=== PATIENT | male | born 1950 | race Caucasian/White ===

== ENCOUNTER 2017-05-28 09:22 | Inpatient (IN) | payer OTHER ==
[~2017-05-28] VITALS: Ht 180.3 cm; Wt 68.3 kg
--- NOTE | 2017-05-28 09:49 | ED CARDIAC/CP/PALPITATIONS ---
See Addendum History of Present Illness General Chief Complaint: Chest Pain Stated Complaint: BIBA CP Source: patient Exam Limitations: no limitations Vital Signs & Intake/Output Vital Signs & Intake/Output Vital Signs Date Time Temp Pulse Resp B/P B/P Pulse O2 O2 Flow FiO2 Mean Ox Delivery Rate 05/28 1220 97.0 84 18 110/84 99 Nasal 2.0L Cannula 05/28 1007 76 18 116/82 99 Nasal 2.0L Cannula 05/28 1000 99 Nasal 2.0L Cannula 05/28 0940 158 110/74 05/28 0940 158 20 110/74 99 Nasal 2.0L Cannula 05/28 0932 158 96/62 05/28 0930 98.1 153 18 98/57 97 Nasal 2.0L Cannula Allergies Coded Allergies: acetaminophen (From PERCOCET) (Intermediate, URTICARIA 05/28/17) oxycodone (From PERCOCET) (Intermediate, URTICARIA 05/28/17) Triage Nurses Notes Reviewed? yes Onset: Abrupt Duration: day(s): (1), better, continues in ED Timing: single episode today Quality/Severity: moderate, dull Location: central Radiation: jaw, neck Activities at Onset: none Prior Chest Pain/Card Workup: no prior chest pain, no prior cardiac workup Nitro Today/Relief: 0.4 mg x 1, provided by EMS, complete relief Aspirin Today: 325 mg x 1, provided by EMS HPI: 66-year-old male past medical history of alcohol abuse brought in by ambulance for evaluation of chest pain palpitations. Patient reports that last night he noticed racing heart and some central chest pain. The pain radiates up into his neck and jaw. He also feels that his heart is racing. He reports associated shortness of breath no hemoptysis lower extremity edema nausea vomiting or diarrhea. He denies any drug use. He does note that he drinks alcohol daily last drink last night. Patient received a nitroglycerin ANS ASA from EMS with complete resolution of the pain. On evaluation to the ER he just reports rapid heart rate. No dizziness or lightheadedness. No recent surgery recent trauma lower extremity edema. He does report that he had a chest CT that showed coronary artery calcifications and a thoracic aneurysm. (Angel MENSAH,Des) Reconcile Medications Aspirin (Aspirin*) 81 MG TAB.CHEW 1 TAB PO DAILY HEART (Reported) Rosuvastatin Calcium (Crestor) 20 MG TABLET 1 TAB PO DAILY HLP (Reported) (Gold Haji DO) Past History Medical History Any Pertinent Medical History? see below for history Surgical History Surgical History: non-contributory Family History Hx Contributory? No (Des Rae) Review of Systems Review of Systems Constitutional: Reports: no symptoms. EENTM: Reports: no symptoms. Respiratory: Reports: see HPI, short of breath. Cardiovascular: Reports: see HPI, chest pain, palpitations. GI: Reports: no symptoms. Genitourinary: Reports: no symptoms. Musculoskeletal: Reports: no symptoms. Skin: Reports: no symptoms. Neurological/Psychological: Reports: no symptoms. Hematologic/Endocrine: Reports: no symptoms. Immunologic/Allergic: Reports: no symptoms. All Other Systems: Reviewed and Negative (Des Rae) Physical Exam Physical Exam General Appearance: well developed/nourished, no apparent distress, alert, awake Head: atraumatic, normal appearance Eyes: Bilateral: normal appearance, PERRL, EOMI. Ears, Nose, Throat: normal pharynx, normal ENT inspection, hearing grossly normal Neck: normal inspection, supple, full range of motion, JVD Respiratory: normal breath sounds, chest non-tender, no respiratory distress, lungs clear Cardiovascular: normal peripheral pulses, tachycardia Peripheral Pulses: 2+ radial (R), 2+ radial (L) Gastrointestinal: soft, non-tender Rectal: normal exam, normal rectal tone, heme negative stool Back: normal inspection, normal range of motion, no vertebral tenderness Extremities: normal inspection, normal range of motion, no edema Neurologic/Psych: no motor/sensory deficits, awake, alert, oriented x 3, normal gait Skin: intact, normal color, warm/dry Lymphatic: no anterior cervical t[place] Core Measures ACS in differential dx? Yes CVA/TIA Diagnosis No Sepsis Present: No Sepsis Focused Exam Completed? No (Des Rae) Progress Differential Diagnosis: AMI, aortic dissection, atrial fibrillation, CHF/pulm edema, costochondritis, musculoskeletal pain, pancreatitis, pericarditis, pneumonia, pneumothorax, PSVT, pulmonary embolism, sepsis, unstable angina, V- fib/V-Tach, WPW syndrome Plan of Care: Orders Procedure Date/time Status EKG 05/29 2200 Active CBC WITHOUT DIFFERENTIAL 05/29 0600 Active BASIC ELECTROLYTES PLUS BUN&CR 05/29 0600 Active Heart Healthy Diet 05/28 L Complete Heart Healthy Diet 05/28 D Active TROPONIN LEVEL 05/28 2200 Active TROPONIN LEVEL 05/28 1600 Active EKG 05/28 1600 Active Code Status 05/28 1248 Active ECHOCARDIOGRAM 05/28 1220 Active Pathway - chart 05/28 1207 Active ECHOCARDIOGRAM 05/28 1207 Active URINE DRUGS OF ABUSE 05/28 1200 Active Patient Data 05/28 1125 Active ED Holding Orders 05/28 1101 Active Admit to inpatient 05/28 1101 Active Vital Signs 05/28 1101 Active Code Status 05/28 1101 Complete Intake & Output 05/28 0959 Active Add-on Test (ER Only) 05/28 0944 Active EKG 05/28 0944 Active Add-on Test (ER Only) 05/28 0940 Active Telemetry/Supervisor Liquefaction 05/28 0925 Active TSH REFLEX 05/28 0924 Complete TROPONIN LEVEL 05/28 0924 Complete PARTIAL THROMBOPLASTIN TIME 05/28 0924 Complete PROTHROMBIN TIME 05/28 0924 Complete MAGNESIUM 05/28 0924 Complete LIPASE 05/28 0924 Complete ETHANOL 05/28 0924 Complete D-DIMER 05/28 0924 Complete COMPREHENSIVE METABOLIC PANEL 05/28 0924 Complete CBC WITHOUT DIFFERENTIAL 05/28 0924 Complete B-TYPE NATRIURETIC PEP (BNP) 05/28 0924 Complete EKG 05/28 0923 Active Pathway - chart 05/28 UNK Active House Staff 05/28 UNK Active VTE Mechanical Prophylaxis 05/28 UNK Active Vital Signs 05/28 UNK Active Telemetry/Supervisor Liquefaction 05/28 UNK Active Intake & Output 05/28 UNK Active CIWA 05/28 UNK Active Current Medications Sig/Mars Start time Last Medication Dose Stop Time Status Admin Aspirin 81 MG DAILY 05/29 0900 UNVr (Aspirin) Atorvastatin Calcium 80 MG 1700 05/28 1700 UNVr (Lipitor) Heparin Sodium 4,000 UNIT ONCE ONE 05/28 1300 CAN (Porcine) 05/28 1301 (Heparin Bolus) Heparin Sodium 25,000 UNIT Q24H 05/28 1300 UNVr (Porcine) (Heparin) Sodium Chloride 500 ML Heparin Sodium 5,000 UNIT ONCE ONE 05/28 1300 UNVr (Porcine) 05/28 1301 (Heparin Bolus) Lorazepam 0 Q1P PRN 05/28 1300 UNVr (Ativan) Aspirin 325 MG ONCE ONE 05/28 0945 CAN (Aspirin) 05/28 0946 Laboratory Tests 05/28/17 1000: Anion Gap 6, Estimated GFR > 60, BUN/Creatinine Ratio 28.3 H, Glucose 102 H, Calcium 8.7, Magnesium 1.8, Total Bilirubin 1.3, AST 25, ALT 38, Alkaline Phosphatase 55, Troponin I < 0.01, Cop-K-Bxtaiwoteci Pept 1300 H, Total Protein 6.7, Albumin 3.9, Globulin 2.8, Albumin/Globulin Ratio 1.4, Lipase 33, TSH &T3 & Free T4 Intrp 0.923, PT 11.3, INR 1.04, APTT 28, D-Dimer High Sensitivty 302 H, CBC w Diff NO MAN DIFF REQ, RBC 4.49 L, MCV 98.9 H, MCH 33.7 H, MCHC 34.1, RDW 14.3, MPV 7.7, Gran % 82.0 H, Lymphocytes % 9.6 L, Monocytes % 7.7, Eosinophils % 0.5, Basophils % 0.2, Absolute Granulocytes 9.9 H, Absolute Lymphocytes 1.2, Absolute Monocytes 0.9 H, Absolute Eosinophils 0.1, Absolute Basophils 0, Serum Alcohol < 10.0 Patient seen and evaluated. On arrival to the emergency department hE is chest pain-free and had a narrow complex SVtachycardia rate of 150s. Blood pressure was 90s over 50s. Patient was given a dose of 6 mg of adenosine that slowed his heart rate down to reveal atrial flutter. Blood pressure to 110s over 70s. He was then given 5 mg of IV Lopressor with good improvement of his heart rate. He is now in a flutter with a rate in the 70s. Blood pressure normalized she reports improvement in his pain. We'll check basic labs, telemetry monitoring, chest x-ray. A CT of the chest and pelvis will be ordered to evaluate for worsening thoracic aneurysm/dissection. Patient was seen by cardiology in the emergency department and they recommended admission to telemetry for further evaluation and treatment. Patient will be heparinized after CTA is back. Case discussed with Dr. Haji. Dr. Haji was present during evaluation of this patient. Diagnostic Imaging: Viewed by Me: Radiology Read, CT Scan. Discussed w/RAD: Radiology Read, CT Scan. Initial ED EKG: SVT RATE 150S, REPEAT EKG AFTER ADENOSINE SHOWS ATRIAL FLUTTER WITH HYPERACUTE T WAVES (Des Rae) Departure Departure Disposition: STILL A PATIENT Condition: Stable Clinical Impression Primary Impression: Atrial flutter Qualifiers: Atrial flutter type: unspecified Qualified Code: I48.92 - Unspecified atrial flutter Referrals: Ryan Ontiveros MD (PCP/Family) Departure Forms: Customer Survey General Discharge Information (Des Rae) Admission Note Spoke With: Louann FOX,Mary Goodson Documentation of Exam: Documentation of any treatments & extenuating circumstances including Concerns Regarding Discharge (functional status, medication knowledge or non-compliance, living conditions, etc.) that warrant an admission rather than observation: [ Patient needs admission for CTA, IV heparinization, cardiology consultation, inpatient echocardiogram PA/MEMORIAL COUNSELOR Co-Sign Statement Statement: ED Attending supervision documentation- [x] I saw and evaluated the patient. I have also reviewed all the pertinent lab results and diagnostic results. I agree with the findings and the plan of care as documented in the PA's/MEMORIAL COUNSELOR's documentation. [] I have reviewed the ED Record and agree with the PA's/MEMORIAL COUNSELOR's documentation. [] Additions or exceptions (if any) to the PAs/MEMORIAL COUNSELOR's note and plan are summarized below: [] 05/28/17 I've seen and personally examined the patient. He is a 66-year-old male who presents emergency Department with palpitations and neck pain. EKG showed SVT. He was given 6 mg of adenosine and he slowed down into the 120s. A flutter was noted and he was treated with 5 mg of IV Lopressor. He is currently pain-free. He is being admitted to the hospital for further care. (Gold Haji DO) Critical Care Note Critical Care Note Critical Care Time: non-applicable (Des Rae)
[2017-05-28 10:10] LABS: ABSOLUTE BASOPHIL COUNT 0 /CUMM (0.0-0.2); ABSOLUTE EOSINOPHIL COUNT 0.1 /CUMM (0.0-0.7); ABSOLUTE GRANULOCYTE CT 9.9 /CUMM (1.4-6.5); ABSOLUTE LYMPH COUNT 1.2 /CUMM (1.2-3.4); ABSOLUTE MONOCYTE COUNT 0.9 /CUMM (0.10-0.60); BASOPHIL % 0.2 % (0.0-2.0); EOSINOPHIL % 0.5 % (0-5); HEMATOCRIT 44.4 % (42-52); MEAN CORPUSCULAR HGB 33.7 PG (27.0-31.0); MEAN CORPUSCULAR HGB CONC 34.1 G/DL (33.0-37.0); MEAN CORPUSCULAR VOLUME 98.9 FL (80.0-94.0); MEAN PLATELET VOLUME 7.7 FL (7.4-10.4); PLATELET COUNT 184 /CUMM (130-400); RBC DISTRIBUTION WIDTH 14.3 % (11.5-14.5); RED BLOOD CELL CT 4.49 /CUMM (4.70-6.10); WHITE BLOOD CELL COUNT 12.1 /CUMM (4.8-10.8)
[2017-05-28 10:29] LABS: PT 11.3 SEC (9.4-12.5); PTT 28 SEC (25-37)
--- NOTE | 2017-05-28 10:50 | RADIOLOGY REPORT ---
EXAMINATION: XR PORTABLE CHEST CLINICAL INFORMATION: Chest pain shortness of breath COMPARISON: Chest CT May 2017. Chest x-ray October 2015. TECHNIQUE: Portable frontal view of the chest was obtained. FINDINGS: No significant abnormality is noted involving the heart, lungs, mediastinum, bony thorax or soft tissues. IMPRESSION: Unremarkable examination. The previously noted small nodules noted on CT are not conspicuous on x-ray.
--- NOTE | 2017-05-28 11:50 | History & Physical ---
Roberta Stuart 05/28/17 1148: General Information and HPI MD Statement: I have seen and personally examined GABE DE JESUS and documented this H&P. The patient is a 66 year old M who presented with a patient stated chief complaint of [chest pain]. Source of Information: patient Exam Limitations: no limitations History of Present Illness: 66-year-old male with a past medical history of alcohol abuse, hyperlipidemia, COPD not on home oxygen presented to the ER with chief complaints of chest pain and palpitations. According to the patient he was in his usual state of health up until 2 AM this morning when he woke up from his with complaints of pain in his neck area that was nonradiating, but she can grade however states that it was not excruciating enough as a 10 out of 10. He denies any dizziness, lightheadedness, chest discomfort however states that he had a difficult time breathing and so he sat up and remain in a chair thereafter. He denies any racing or fluttering of the heart or palpitations. He states that the neck discomfort was severe enough for him to decide to come to the walk-in clinic for further evaluation. He was subsequently sent to the ER. Of note patient follows up with Dr. Gupta as an outpatient. He states that about a couple of years ago he had an episode of syncope and had his stress test that reportedly is unremarkable. Patient does endorse smoking 1 pack of cigarettes a day and has been doing that for almost 30 years now. He also drinks bourbon 4-6 ounces on a daily basis. His last drink was yesterday at 9 PM. He denies any other recreational drug use. He states he did not overdrink last evening. Of note he does endorse having cough and bringing up white phlegm however he has had that chronically in the recent upper respiratory tract infection. Allergies/Medications Allergies: Coded Allergies: acetaminophen (From PERCOCET) (Intermediate, URTICARIA 05/28/17) oxycodone (From PERCOCET) (Intermediate, URTICARIA 05/28/17) Home Med list Aspirin (Aspirin*) 81 MG TAB.CHEW 1 TAB PO DAILY HEART (Reported) Rosuvastatin Calcium (Crestor) 20 MG TABLET 1 TAB PO DAILY HLP (Reported) Compliance With Home Meds: GOOD Past History Travel History Traveled to [place] past 21 day No Medical History Cardiovascular: hyperlipidemia Respiratory: COPD, emphysema Surgical History Surgical History: non-contributory, BACK SURGERIES Past Family/Social History Family History Relations & Conditions if any MOTHER FH: colon cancer FATHER FH: malignant neoplasm of bone Psychosocial History Where do you live? Home Who Do You Live With? spouse Smoking Status: Current Everyday Smoker ETOH Use: alcoholic Illicit Drug Use: denies illicit drug use Review of Systems Review of Systems Constitutional: Denies: chills, fever, weakness. EENTM: Denies: visual changes. Cardiovascular: Denies: chest pain, edema, orthopena, palpitations, peripheral edema, syncope. Respiratory: Reports: cough, short of breath, sputum production. Denies: hemoptysis, orthopnea, wheezing. GI: Denies: abdominal pain, constipation, diarrhea, nausea, vomiting. Genitourinary: Reports: no symptoms. Neurological/Psychological: Denies: headache, numbness, tingling, tremors, unable to move lower ext, unable to move upper ext, weakness. Exam & Diagnostic Data Last 24 Hrs of Vital Signs/I&O Vital Signs Date Time Temp Pulse Resp B/P B/P Pulse O2 O2 Flow FiO2 Mean Ox Delivery Rate 05/28 1007 76 18 116/82 99 Nasal 2.0L Cannula 05/28 1000 99 Nasal 2.0L Cannula 05/28 0940 158 110/74 05/28 0940 158 20 110/74 99 Nasal 2.0L Cannula 05/28 0932 158 96/62 05/28 0930 98.1 153 18 98/57 97 Nasal 2.0L Cannula Physical Exam General Appearance Alert, Oriented X3, Cooperative, No Acute Distress Skin Temp/Moisture Exam: Warm/Dry HEENT Atraumatic, PERRLA, EOMI, dry mucous membranes Neck Supple, No JVD, No thryomegaly, No LAD Cardiovascular Normal S1, Normal S2, No Murmurs, tachycardic; irregular Lungs Clear to Auscultation, Normal Air Movement Abdomen Normal Bowel Sounds, Soft, No Tenderness Neurological Normal Speech, Strength at 5/5 X4 Ext, Normal Tone, Sensation Intact, Cranial Nerves 3-12 NL, Reflexes 2+ Extremities No Edema, No Tenderness/Swelling Vascular Normal Pulses, Pulses Symmetrical Last 24 Hrs of Labs/Chris: Laboratory Tests 05/28/17 1000: Anion Gap 6, Estimated GFR > 60, BUN/Creatinine Ratio 28.3 H, Glucose 102 H, Calcium 8.7, Magnesium 1.8, Total Bilirubin 1.3, AST 25, ALT 38, Alkaline Phosphatase 55, Troponin I < 0.01, Wva-P-Gadoynbrzle Pept 1300 H, Total Protein 6.7, Albumin 3.9, Globulin 2.8, Albumin/Globulin Ratio 1.4, Lipase 33, TSH &T3 & Free T4 Intrp 0.923, PT 11.3, INR 1.04, APTT 28, D-Dimer High Sensitivty 302 H, CBC w Diff NO MAN DIFF REQ, RBC 4.49 L, MCV 98.9 H, MCH 33.7 H, MCHC 34.1, RDW 14.3, MPV 7.7, Gran % 82.0 H, Lymphocytes % 9.6 L, Monocytes % 7.7, Eosinophils % 0.5, Basophils % 0.2, Absolute Granulocytes 9.9 H, Absolute Lymphocytes 1.2, Absolute Monocytes 0.9 H, Absolute Eosinophils 0.1, Absolute Basophils 0, Serum Alcohol < 10.0 Diagnostic Data EKG Results Atrial flutter; HR: 153; LVH; tall peak CXR Results SERVICE DATE: 05/28/17 EXAM TYPE: RAD - XRY-PORTABLE CHEST XRAY IMPRESSION: Unremarkable examination. The previously noted small nodules noted on CT are not conspicuous on x-ray. Other Results SERVICE DATE: 05/28/17 EXAM TYPE: CAT - CT ABD & PELVIS ANGIOGRAM; CTA CHEST-AORTIC DISSECTION FINDINGS: VASCULAR: ASCENDING AORTA: Top normal in size measuring 3.8 x 3.7 cm at the main pulmonary artery. There is no evidence of intramural hematoma or dissection. LAD coronary artery calcium. AORTIC ARCH: Normal caliber. Three-vessel aortic arch.. Vessels are patent. No evidence of intramural hematoma or dissection. DESCENDING AORTA: Normal caliber. No evidence of intramural hematoma or dissection. ABDOMINAL AORTA: Normal caliber. Mild plaque in the infrarenal segment. No evidence of intramural hematoma or dissection. CELIOMESENTERIC ARTERIES: Mild disease at the celiac artery origin. The SMA is widely patent. The BILLIE is widely patent. RENAL ARTERIES: Mild disease at the right renal artery origin. Mild disease at the left renal artery origin. The renal arteries are patent. RIGHT ILIOFEMORAL ARTERIES: Moderate atherosclerotic plaque. Severe stenosis at the external iliac artery origin. Mild common femoral level disease. LEFT ILIOFEMORAL ARTERIES: Moderate atherosclerotic plaque. No hemodynamically significant stenosis. Mild common femoral level disease. NONVASCULAR: LUNGS: Severe emphysema. There are numerous solid nodules bilaterally ranging in size from 2-9 mm without change. No definite new lesion. Follow-up as appropriate based on the prior lung cancer screening recommendations. MEDIASTINUM: No mediastinal adenopathy. PLEURA: There is no pleural effusion. No pleural mass or thickening. LIVER, GALLBLADDER, AND BILIARY TREE: The liver is normal in size, shape, and attenuation. No focal hepatic lesion or biliary ductal dilatation is present. The gallbladder is unremarkable with no evidence of radiopaque gallstones, gallbladder wall thickening, or obvious pericholecystic inflammatory changes. PANCREAS: Unremarkable. SPLEEN: Unremarkable. ADRENAL GLANDS: Unremarkable. KIDNEYS AND URETERS: The kidneys are normal in size, shape, and attenuation. No hydronephrosis, hydroureter, or calculi seen. No perinephric stranding. BLADDER: Unremarkable. GASTROINTESTINAL TRACT: The small and large bowel are unremarkable. The appendix is unremarkable. ABDOMINAL WALL: No significant hernia is appreciated. LYMPH NODES: Normal. PELVIC VISCERA: The prostate and seminal vesicles are unremarkable. OSSEOUS STRUCTURES: Mild multilevel degenerative disc disease. No compression fracture. IMPRESSION: Negative for aortic dissection. Assessment/Plan Assessment: 66-year-old male with a past medical history of alcohol, HLP, COPD (not on home O2) was brought in by ambulance for evaluation of chest pain and palpitations. Vitals at the time of blood pressure 116/82, respiratory rate of 18, saturating 99% on 2 L of oxygen via nasal cannula. Labs pertinent for leukocytosis with a white blood count of 12,100, H&H of 15.1/ 44.4 and a platelet count of [id number]. Serum chemistries reveal a sodium 136, potassium 3.9, bicarb of 29, anion gap 12 6, BUN 17 and creatinine of 0.6. Serum glucose 102. Magnesium was 1.8. LFTs unremarkable with a total bili of 1.3, AST/ALT of 325/38, alk phos of 55 first of troponin negative at less than 0.01 BNP 1300. TSH/T3-T4 0.92 and serum lipase of 30. INR 1.04 with a d-dimer of 302. Tox screen revealed serum alcohol of less than 10. Chest x-ray was done which revealed an unremarkable examination. The previously noted small nodules noted on CT are not conspicuous on x-ray. CTA chest and abdomen pelvis r/o aortic dissection. EKG revealed atrial flutter with HR: 154; 2:1 blcok; LVH; tall T waves The ER patient received 6 mg IV 1 of adenosine, 5 mg IV 1 of Lopressor normal saline bolus. Assessment and Plan Admit patient to telemetry given SVT. # Atrial flutter - Most likely 2/2 COPD which prednisone, in the setting of having consumed alcohol vs ACS (unlikley) - New onset- of unknown duration - Patient is presently rate controlled with HR in the 70's after receiving 5mg of IV Lopressor and 6mg of adenosine in the ER earlier on. - Spoke with Dr. Camejo. Will satrt patient on a low dose B-Tonio - Metoprolol 12.5mg BID to maintain resting HR of <110 - His [id number] is 1, and HASBLED score of 1 (given he consumes more than 8 drinks of alcohol) - He is at low risk of bleeidng and would benefit form AC, especially if heneeds to be cardioverted in the future. - He was guaic negative as per ED physician. Will start Heparin for now. - Meanwhile will trend trop and EKG q6 hrs to r/o any ischemic event taht may have precipitated this. - Echo to r/o RWMA, and to dtermine if he has dilated atria suggestive of chronic afib/flutter - F/U cardio recs. #Alcohol dependence - Will place him on CIWA - Will also start him on Ativan per CIWA. #HLP - Continue on Atorvastatin 80mg and ASA 81mg daily. #Nicotine dependence - Counselled on smoking cessation - DVT Prophylaxis - On IV heparin - Diet - Heart Healthy - Code Status - Full Code As Ranked By This Provider Problem List: 1. Atrial flutter Qualifiers Atrial flutter type: unspecified Qualified Code: I48.92 - Unspecified atrial flutter Core Measures/Misc (10/29) Acute Coronary Syndrome ACS Diagnosis: No Congestive Heart Failure Congestive Heart Failure Diagnosis No Cerebrovascular Accident CVA/TIA Diagnosis: No VTE (View Protocol) VTE Risk Factors Age>40 No Mechanical VTE Prophylaxis d/t N/A MechProphylax Ordered No VTE Pharm Prophylaxis d/t NA PharmProphylax ordered Sepsis (View protocol) Sepsis Present: No Resident Review Statement Resident Statement: admitted by resident Jolene Obrien 05/28/17 1446: Attending MD Review Statement Attending Statement Attending MD Statement: examined this patient, discuss w/resident/PA/NUTRITION PARTNER, agreed w/resident/PA/NUTRITION PARTNER, discussed with family, reviewed EMR data (avail), discussed with nursing, discussed with case mgmt, reviewed images, amended to note Attending Assessment/Plan: 66 o/m with atypical chest pain and new onset atrial flutter. Obtain serial caridac enzymes r/o IA. Telemetry monitoring. Cardiology consult, ECHO as per cardiology. ASA, statin , anticaogulation as per cardiology. home meds.
--- NOTE | 2017-05-28 12:20 | Cons- Cardiology ---
General Information and HPI Consulting Request Date of Consult: 05/28/17 Requested By: Jolene Obrien MD Reason for Consult: atrial flutter Source of Information: patient, old records History of Present Illness: This is a 66-year-old male with a past medical history of coronary artery calcifications with no ischemia by stress test, COPD with active tobacco use, and alcohol dependence who presented to [facility] with a chief complaint of moderate intensity super clavicular discomfort which awoke him from sleep with some pain in his neck and also some mild dyspnea without associated nausea or diaphoresis. Denies headache, slurring of speech, subjective fever, or focal weakness. He reports approximately 3 "shots" of whiskey each evening which is chronic for him. prior to this episode he reports being in his usual state of health with no unusual symptoms. In the emergency room he was found to have tachycardia and was given adenosine and was subsequently noted to have atrial flutter with variable conduction. He reports no prior history of significant atrial arrhythmia. Denies significant palpitation. Allergies/Medications Allergies: Coded Allergies: oxycodone (From PERCOCET) (Intermediate, URTICARIA 05/28/17) Home Med List: Aspirin (Aspirin*) 81 MG TAB.CHEW 1 TAB PO DAILY HEART (Reported) Rosuvastatin Calcium (Crestor) 20 MG TABLET 1 TAB PO DAILY HLP (Reported) Current Medications: Current Medications Sig/Mars Start time Last Medication Dose Route Stop Time Status Admin Adenosine 6 MG ONCE ONE 05/28 0945 DC 05/28 IV 05/28 0946 0932 Adenosine 0 .STK-MED ONE 05/28 0943 DC IV Aspirin 325 MG ONCE ONE 05/28 0845 CAN PO 05/28 0946 Metoprolol Tartrate 0 .STK-MED ONE 05/28 0947 DC IV Metoprolol Tartrate 5 MG ONCE ONE 05/28 0945 DC 05/28 IV 05/28 0946 0940 Sodium Chloride 1,000 ML BOLUS ONE 05/28 0945 DC 05/28 IV 05/28 1044 0928 Review of Systems Review of Systems: Review of systems as per HPI. The remainder of a 10 point review of systems was reviewed and was otherwise negative. Past History Travel History Traveled to [place] past 21 day No Medical History Cardiovascular: hyperlipidemia Respiratory: COPD, emphysema Surgical History Surgical History: non-contributory Psychosocial History ETOH Use: alcoholic Exam & Diagnostic Data Vital Signs and I&O Vital Signs Date Time Temp Pulse Resp B/P B/P Pulse O2 O2 Flow FiO2 Mean Ox Delivery Rate 05/28 1007 76 18 116/82 99 Nasal 2.0L Cannula 05/28 1000 99 Nasal 2.0L Cannula 05/28 0940 158 110/74 05/28 0940 158 20 110/74 99 Nasal 2.0L Cannula 05/28 0932 158 96/62 05/28 0930 98.1 153 18 98/57 97 Nasal 2.0L Cannula Physical Exam: General: no apparent distress. Alert. Eyes: No obvious scleral icterus. HEENT: No jugular venous distention or abnormal jugular venous pulsations. Cardiovascular: Normal intensity S1/S2. Irregular Respiratory: No rales or rhonchi Abdomen: Soft, nontender with no guarding or rebound tenderness. Musculoskeletal: No clubbing or cyanosis noted Skin: Warm Neurologic: No gross focal deficits noted. Labs/Chris Results: Laboratory Tests 05/28 1000 Chemistry Sodium (137 - 145 mmol/L) 136 L Potassium (3.5 - 5.1 mmol/L) 3.9 Chloride (98 - 107 mmol/L) 100 Carbon Dioxide (22 - 30 mmol/L) 29 Anion Gap (5 - 16) 6 BUN (9 - 20 mg/dL) 17 Creatinine (0.7 - 1.2 mg/dL) 0.6 L Estimated GFR (>60 ml/min) > 60 BUN/Creatinine Ratio (7 - 25 %) 28.3 H Glucose (65 - 99 mg/dL) 102 H Calcium (8.4 - 10.2 mg/dL) 8.7 Magnesium (1.6 - 2.3 mg/dL) 1.8 Total Bilirubin (0.2 - 1.3 mg/dL) 1.3 AST (17 - 59 U/L) 25 ALT (21 - 72 U/L) 38 Alkaline Phosphatase (< 127 U/L) 55 Troponin I (<0.11 ng/ml) < 0.01 Fng-B-Surhbzxmnvs Pept (<125 pg/mL) 1300 H Total Protein (6.3 - 8.2 g/dL) 6.7 Albumin (3.5 - 5.0 g/dL) 3.9 Globulin (1.9 - 4.2 gm/dL) 2.8 Albumin/Globulin Ratio (1.1 - 2.2 %) 1.4 Lipase (23 - 300 U/L) 33 TSH &T3 &Free T4 Intrp (0.27 - 4.20 uIU/mL) 0.923 Coagulation PT (9.4 - 12.5 SEC) 11.3 INR (0.90 - 1.17) 1.04 APTT (25 - 37 SEC) 28 D-Dimer High Sensitivty (0 - 243 ng/ml) 302 H Hematology CBC w Diff NO MAN DIFF REQ WBC (4.8 - 10.8 /CUMM) 12.1 H RBC (4.70 - 6.10 /CUMM) 4.49 L Hgb (14.0 - 18.0 G/DL) 15.1 Hct (42 - 52 %) 44.4 MCV (80.0 - 94.0 FL) 98.9 H MCH (27.0 - 31.0 PG) 33.7 H MCHC (33.0 - 37.0 G/DL) 34.1 RDW (11.5 - 14.5 %) 14.3 Plt Count (130 - 400 /CUMM) 184 MPV (7.4 - 10.4 FL) 7.7 Gran % (42.2 - 75.2 %) 82.0 H Lymphocytes % (20.5 - 51.1 %) 9.6 L Monocytes % (1.7 - 9.3 %) 7.7 Eosinophils % (0 - 5 %) 0.5 Basophils % (0.0 - 2.0 %) 0.2 Absolute Granulocytes (1.4 - 6.5 /CUMM) 9.9 H Absolute Lymphocytes (1.2 - 3.4 /CUMM) 1.2 Absolute Monocytes (0.10 - 0.60 /CUMM) 0.9 H Absolute Eosinophils (0.0 - 0.7 /CUMM) 0.1 Absolute Basophils (0.0 - 0.2 /CUMM) 0 Toxicology Serum Alcohol (<10 MG/DL) < 10.0 Diagnostic Data EKG Results Tracing was personally reviewed and shows atrial flutter with variable conduction and prominent T waves CXR Results No evidence of CHF Other Results Chest Ct: Negative for aortic dissection. Assessment/Plan Assessment/Plan 1. New onset symptomatic atrial flutter 2. COPD 3. Active cigarette use 4. EtOH dependence 5. History of coronary artery calcifications The patient presents in new onset atrial flutter; he was initially tachycardic but heart rate is now improved as he now has variable conduction. His initial symptoms also improved. We have initiated him on heparin intravenous drip and also low-dose metoprolol as he was not bronchospastic on exam today. Likely plan to transition to oral anticoagulant if tolerating the heparin drip and if able to tolerate oral anticoagulation will likely be a candidate for either cardioversion or direct flutter ablation in the future. Agree with obtaining a transthoracic echocardiogram. Continue on daily statin therapy. Discussed the importance of smoking cessation and decreased ETOH use. Case was discussed with the ER attending and admitting resident. Mitch Camejo MD [facility] Consult Acknowledgment - Thank you for your consult request.
--- NOTE | 2017-05-28 12:28 | CT SCAN REPORT ---
EXAMINATION: CT ANGIOGRAM OF THE CHEST, ABDOMEN AND PELVIS WITHOUT AND WITH CONTRAST CLINICAL INFORMATION: Chest pain, tachycardia. COMPARISON: CT chest 05/24/2017. TECHNIQUE: Multidetector volumetric CT imaging of the chest, abdomen, and pelvis was performed before and after the administration of 95 mL of Optiray 320 intravenous contrast without immediate adverse reactions. The images were reviewed and postprocessed on a dedicated 3-D workstation. Extensive vascular postprocessing was performed including 3-D volume rendered, maximum intensity projection, and curved multiplanar reformatted images. DLP: 1074 mGy-cm. FINDINGS: VASCULAR: ASCENDING AORTA: Top normal in size measuring 3.8 x 3.7 cm at the main pulmonary artery. There is no evidence of intramural hematoma or dissection. LAD coronary artery calcium. AORTIC ARCH: Normal caliber. Three-vessel aortic arch.. Vessels are patent. No evidence of intramural hematoma or dissection. DESCENDING AORTA: Normal caliber. No evidence of intramural hematoma or dissection. ABDOMINAL AORTA: Normal caliber. Mild plaque in the infrarenal segment. No evidence of intramural hematoma or dissection. CELIOMESENTERIC ARTERIES: Mild disease at the celiac artery origin. The SMA is widely patent. The BILLIE is widely patent. RENAL ARTERIES: Mild disease at the right renal artery origin. Mild disease at the left renal artery origin. The renal arteries are patent. RIGHT ILIOFEMORAL ARTERIES: Moderate atherosclerotic plaque. Severe stenosis at the external iliac artery origin. Mild common femoral level disease. LEFT ILIOFEMORAL ARTERIES: Moderate atherosclerotic plaque. No hemodynamically significant stenosis. Mild common femoral level disease. NONVASCULAR: LUNGS: Severe emphysema. There are numerous solid nodules bilaterally ranging in size from 2-9 mm without change. No definite new lesion. Follow-up as appropriate based on the prior lung cancer screening recommendations. MEDIASTINUM: No mediastinal adenopathy. PLEURA: There is no pleural effusion. No pleural mass or thickening. LIVER, GALLBLADDER, AND BILIARY TREE: The liver is normal in size, shape, and attenuation. No focal hepatic lesion or biliary ductal dilatation is present. The gallbladder is unremarkable with no evidence of radiopaque gallstones, gallbladder wall thickening, or obvious pericholecystic inflammatory changes. PANCREAS: Unremarkable. SPLEEN: Unremarkable. ADRENAL GLANDS: Unremarkable. KIDNEYS AND URETERS: The kidneys are normal in size, shape, and attenuation. No hydronephrosis, hydroureter, or calculi seen. No perinephric stranding. BLADDER: Unremarkable. GASTROINTESTINAL TRACT: The small and large bowel are unremarkable. The appendix is unremarkable. ABDOMINAL WALL: No significant hernia is appreciated. LYMPH NODES: Normal. PELVIC VISCERA: The prostate and seminal vesicles are unremarkable. OSSEOUS STRUCTURES: Mild multilevel degenerative disc disease. No compression fracture. IMPRESSION: Negative for aortic dissection.
[2017-05-28] MEDS ORDERED: ASPIRIN81 M4 PO (12:30)
[2017-05-28] MEDS ORDERED: CRESTOR20 M2 PO (12:30)
[2017-05-28 17:37] VITALS: BP 118/70
[2017-05-28 21:50] LABS: PTT 43 SEC (25-37)
[2017-05-28 22:27] VITALS: BP 114/78
[2017-05-29 04:49] LABS: ABSOLUTE BASOPHIL COUNT 0 /CUMM (0.0-0.2); ABSOLUTE EOSINOPHIL COUNT 0.1 /CUMM (0.0-0.7); ABSOLUTE GRANULOCYTE CT 4.8 /CUMM (1.4-6.5); ABSOLUTE LYMPH COUNT 1.6 /CUMM (1.2-3.4); ABSOLUTE MONOCYTE COUNT 0.7 /CUMM (0.10-0.60); BASOPHIL % 0.3 % (0.0-2.0); EOSINOPHIL % 1.8 % (0-5); GRANULOCYTE % 66.2 % (42.2-75.2); MEAN CORPUSCULAR HGB 33.7 PG (27.0-31.0); MEAN CORPUSCULAR VOLUME 99.2 FL (80.0-94.0); MEAN PLATELET VOLUME 7.6 FL (7.4-10.4); PLATELET COUNT 156 /CUMM (130-400); RBC DISTRIBUTION WIDTH 14.3 % (11.5-14.5); RED BLOOD CELL CT 4.03 /CUMM (4.70-6.10); WHITE BLOOD CELL COUNT 7.3 /CUMM (4.8-10.8)
[2017-05-29 04:58] LABS: PTT 57 SEC (25-37)
[2017-05-29 06:36] VITALS: BP 118/80
--- NOTE | 2017-05-29 07:16 | PN- Housestaff ---
Roberta Stuart 05/29/17 0716: Subjective Follow-up For: - Tawanna - COPD not on home oxygen - Upper chest discomfort Tele-Events Since Last Visit: Tawanna Subjective: Patient seen and examined at bedside. He complains of difficulty taking a dep breath in . Review of Systems Constitutional: Denies: chills, diaphoresis, fever, weakness. EENTM: Denies: visual changes. Cardiovascular: Denies: orthopena, palpitations, peripheral edema, syncope. Respiratory: Reports: cough, sputum production. Denies: hemoptysis, orthopnea, wheezing. Gastrointestinal: Denies: abdominal pain, constipation, diarrhea, nausea, vomiting. Genitourinary: Reports: no symptoms. Musculoskeletal: Reports: no symptoms. Neurological/Psychological: Denies: headache, numbness, tingling, tremors. Objective Last 24 Hrs of Vital Signs/I&O Vital Signs Date Time Temp Pulse Resp B/P B/P Pulse O2 O2 Flow FiO2 Mean Ox Delivery Rate 05/29 0636 98.0 96 20 118/80 92 Room Air 05/29 0000 94 Nasal 2.0L Cannula 05/28 2321 102 116/78 05/28 2227 98.6 102 20 114/78 96 05/28 1737 98.2 101 22 118/70 96 05/28 1715 Nasal 1.0L Cannula 05/28 1653 98.1 87 20 109/67 100 Nasal 2.0L Cannula 05/28 1540 75 128/82 05/28 1520 82 18 110/72 98 Room Air 05/28 1430 98.6 81 20 128/80 100 Nasal 2.0L Cannula 05/28 1220 97.0 84 18 110/84 99 Nasal 2.0L Cannula 05/28 1007 76 18 116/82 99 Nasal 2.0L Cannula 05/28 1000 99 Nasal 2.0L Cannula 05/28 0940 158 110/74 05/28 0940 158 20 110/74 99 Nasal 2.0L Cannula 05/28 0932 158 96/62 05/28 0930 98.1 153 18 98/57 97 Nasal 2.0L Cannula Intake & Output 05/29 0800 05/29 0000 05/28 1600 Intake Total 925 Output Total Balance 925 Intake, IV 525 Intake, Oral 400 Patient 151 lb 145 lb Weight Weight Bed scale Measurement Method Physical Exam General Appearance: Alert, Oriented X3, Cooperative, No Acute Distress HEENT: Atraumatic, PERRLA, EOMI, Mucous Membr. moist/pink Neck: Supple, No JVD, No thryomegaly, No LAD Cardiovascular: Normal S1, Normal S2, No Murmurs, regularly irregular Lungs: Clear to Auscultation, Normal Air Movement Abdomen: Normal Bowel Sounds, Soft, No Tenderness Neurological: Normal Speech, Strength at 5/5 X4 Ext, Normal Tone, Sensation Intact, Cranial Nerves 3-12 NL, Reflexes 2+ Extremities: No Edema, Normal Pulses Current Medications: Current Medications Sig/Mars Start time Last Medication Dose Route Stop Time Status Admin Adenosine 6 MG ONCE ONE 05/28 0945 DC 05/28 IV 05/28 0946 0932 Adenosine 0 .STK-MED ONE 05/28 0943 DC IV Aspirin 81 MG DAILY 05/29 0900 AC 05/29 PO 0752 Aspirin 325 MG ONCE ONE 05/28 0945 CAN PO 05/28 0946 Atorvastatin Calcium 80 MG 1700 05/28 1700 AC 05/28 PO 2321 Heparin Sodium 0 .STK-MED ONE 05/28 1456 DC (Porcine) .ROUTE Heparin Sodium 4,000 UNIT ONCE ONE 05/28 1300 CAN (Porcine) IV 05/28 1301 Heparin Sodium 25,000 UNIT Q24H 05/28 1300 AC 05/28 (Porcine) IV 1454 Sodium Chloride 500 ML Heparin Sodium 5,000 UNIT ONCE ONE 05/28 1300 DC 05/28 (Porcine) IV 05/28 1301 1450 Lorazepam 0 Q1P PRN 05/28 1300 AC IV Metoprolol Tartrate 0 .STK-MED ONE 05/28 1539 DC PO Metoprolol Tartrate 12.5 MG BID 05/28 1418 AC 05/29 PO 0752 Metoprolol Tartrate 0 .STK-MED ONE 05/28 0947 DC IV Metoprolol Tartrate 5 MG ONCE ONE 05/28 0945 DC 05/28 IV 05/28 0946 0940 Potassium Chloride 40 MEQ ONCE ONE 05/29 0730 DC 05/29 PO 05/29 0731 0752 Sodium Chloride 1,000 ML Q13H 05/28 1330 DC 05/28 IV 05/29 0229 1540 Sodium Chloride 1,000 ML BOLUS ONE 05/28 0945 DC 05/28 IV 05/28 1044 0928 Last 24 Hrs of Lab/Chris Results Last 24 Hrs of Labs/Mics: Laboratory Tests 05/29/17 0425: Anion Gap 5, Estimated GFR > 60, BUN/Creatinine Ratio 22.0, Magnesium 2.0, APTT 57 H, CBC w Diff NO MAN DIFF REQ, RBC 4.03 L, MCV 99.2 H, MCH 33.7 H, MCHC 34.0, RDW 14.3, MPV 7.6, Gran % 66.2, Lymphocytes % 21.7, Monocytes % 10.0 H, Eosinophils % 1.8, Basophils % 0.3, Absolute Granulocytes 4.8, Absolute Lymphocytes 1.6, Absolute Monocytes 0.7 H, Absolute Eosinophils 0.1, Absolute Basophils 0 05/28/17 2115: Troponin I < 0.01, APTT 43 H 05/28/17 1935: Urine Opiates Screen < 100, Methadone Screen < 40, Barbiturate Screen < 60, Ur Phencyclidine Scrn < 6.00, Amphetamines Screen < 100, U Benzodiazepines Scrn < 85, Urine Cocaine Screen < 50, Urine Cannabis Screen < 5.00 05/28/17 1538: Troponin I < 0.01 05/28/17 1000: Anion Gap 6, Estimated GFR > 60, BUN/Creatinine Ratio 28.3 H, Glucose 102 H, Calcium 8.7, Magnesium 1.8, Total Bilirubin 1.3, AST 25, ALT 38, Alkaline Phosphatase 55, Troponin I < 0.01, Sfk-R-[id number] Pept 1300 H, Total Protein 6.7, Albumin 3.9, Globulin 2.8, Albumin/Globulin Ratio 1.4, Lipase 33, TSH &T3 & Free T4 Intrp 0.923, PT 11.3, INR 1.04, APTT 28, D-Dimer High Sensitivty 302 H, CBC w Diff NO MAN DIFF REQ, RBC 4.49 L, MCV 98.9 H, MCH 33.7 H, MCHC 34.1, RDW 14.3, MPV 7.7, Gran % 82.0 H, Lymphocytes % 9.6 L, Monocytes % 7.7, Eosinophils % 0.5, Basophils % 0.2, Absolute Granulocytes 9.9 H, Absolute Lymphocytes 1.2, Absolute Monocytes 0.9 H, Absolute Eosinophils 0.1, Absolute Basophils 0, Serum Alcohol < 10.0 Orders Radiology Findings: SERVICE DATE: 05/28/17 EXAM TYPE: RAD - XRY-PORTABLE CHEST XRAY IMPRESSION: Unremarkable examination. The previously noted small nodules noted on CT are not conspicuous on x-ray. SERVICE DATE: 05/28/17 EXAM TYPE: CAT - CT ABD & PELVIS ANGIOGRAM; CTA CHEST-AORTIC DISSECTION FINDINGS: VASCULAR: ASCENDING AORTA: Top normal in size measuring 3.8 x 3.7 cm at the main pulmonary artery. There is no evidence of intramural hematoma or dissection. LAD coronary artery calcium. AORTIC ARCH: Normal caliber. Three-vessel aortic arch.. Vessels are patent. No evidence of intramural hematoma or dissection. DESCENDING AORTA: Normal caliber. No evidence of intramural hematoma or dissection. ABDOMINAL AORTA: Normal caliber. Mild plaque in the infrarenal segment. No evidence of intramural hematoma or dissection. CELIOMESENTERIC ARTERIES: Mild disease at the celiac artery origin. The SMA is widely patent. The BILLIE is widely patent. RENAL ARTERIES: Mild disease at the right renal artery origin. Mild disease at the left renal artery origin. The renal arteries are patent. RIGHT ILIOFEMORAL ARTERIES: Moderate atherosclerotic plaque. Severe stenosis at the external iliac artery origin. Mild common femoral level disease. LEFT ILIOFEMORAL ARTERIES: Moderate atherosclerotic plaque. No hemodynamically significant stenosis. Mild common femoral level disease. NONVASCULAR: LUNGS: Severe emphysema. There are numerous solid nodules bilaterally ranging in size from 2-9 mm without change. No definite new lesion. Follow-up as appropriate based on the prior lung cancer screening recommendations. MEDIASTINUM: No mediastinal adenopathy. PLEURA: There is no pleural effusion. No pleural mass or thickening. LIVER, GALLBLADDER, AND BILIARY TREE: The liver is normal in size, shape, and attenuation. No focal hepatic lesion or biliary ductal dilatation is present. The gallbladder is unremarkable with no evidence of radiopaque gallstones, gallbladder wall thickening, or obvious pericholecystic inflammatory changes. PANCREAS: Unremarkable. SPLEEN: Unremarkable. ADRENAL GLANDS: Unremarkable. KIDNEYS AND URETERS: The kidneys are normal in size, shape, and attenuation. No hydronephrosis, hydroureter, or calculi seen. No perinephric stranding. BLADDER: Unremarkable. GASTROINTESTINAL TRACT: The small and large bowel are unremarkable. The appendix is unremarkable. ABDOMINAL WALL: No significant hernia is appreciated. LYMPH NODES: Normal. PELVIC VISCERA: The prostate and seminal vesicles are unremarkable. OSSEOUS STRUCTURES: Mild multilevel degenerative disc disease. No compression fracture. IMPRESSION: Negative for aortic dissection. Assessment/Plan Assessment: 66-year-old male with a past medical history of alcohol, HLP, COPD (not on home O2) was brought in by ambulance for evaluation of chest pain and palpitations. Vitals at the time of blood pressure 116/82, respiratory rate of 18, saturating 99% on 2 L of oxygen via nasal cannula. Labs pertinent for leukocytosis with a white blood count of 12,100, H&H of 15.1/ 44.4 and a platelet count of [id number]. Serum chemistries reveal a sodium 136, potassium 3.9, bicarb of 29, anion gap 12 6, BUN 17 and creatinine of 0.6. Serum glucose 102. Magnesium was 1.8. LFTs unremarkable with a total bili of 1.3, AST/ALT of 325/38, alk phos of 55 first of troponin negative at less than 0.01 BNP 1300. TSH/T3-T4 0.92 and serum lipase of 30. INR 1.04 with a d-dimer of 302. Tox screen revealed serum alcohol of less than 10. Chest x-ray was done which revealed an unremarkable examination. The previously noted small nodules noted on CT are not conspicuous on x-ray. CTA chest and abdomen pelvis r/o aortic dissection. EKG revealed atrial flutter with HR: 154; 2:1 blcok; LVH; tall T waves The ER patient received 6 mg IV 1 of adenosine, 5 mg IV 1 of Lopressor normal saline bolus. Assessment and Plan Patient placed on Telelmetry and following problems are being addressed: # Atrial flutter - Most likely 2/2 COPD, in the setting of having consumed alcohol - New onset- of unknown duration - Patient is presently rate controlled with HR <110 after being started on low dose B-abiola yesterday - Plan to switch to oral AC today. - ACS was r/o with trop and EKG q6 hrs - F/U Echo to r/o RWMA, and ? pericarditis (given persistent inability to take a deep breath) to detrmine if he has dilated atria suggestive of chronic afib/ flutter, or any evidence of pericardial fluid - F/U cardio recs. #Alcohol dependence - Continue on CIWA for now, with plans to D/C tmrw - Of note CIWA have been 0 - Continue on Ativan per CIWA. #HLP - Continue on Atorvastatin 80mg and ASA 81mg daily. #Nicotine dependence - Counselled on smoking cessation - DVT Prophylaxis - On IV heparin - Diet - Heart Healthy - Code Status - Full Code Problem List: 1. Atrial flutter Pain Ratin Pain Location: upper chest Pain Goal: Remain pain free Pain Plan: Tyelnol Tomorrow's Labs & Rationales: CBC- H&H; wbc CamilleJolene colorado 05/29/17 1038: Attending MD Review Statement Attending Statement Attending MD Statement: examined this patient, discuss w/resident/PA/QA SPECIALIST, agreed w/resident/PA/QA SPECIALIST, discussed with family, reviewed EMR data (avail), discussed with nursing, discussed with case mgmt, reviewed images, amended to note Attending Assessment/Plan: 66 o/m with atypical chest pain [place] ruled out and new onset atrial flutter. Continue Telemetry monitoring. Cardiology consulted, ECHO pending. Anticaogulation, low dose b abiola as per cardiology. Anticipate dc if ok with cardiology. Abstinence advised from alcohol and smoking. Follow up outpatient with cardiology in 2-3 weeks of discharge and PCP in 1-2 weeks of discharge
--- NOTE | 2017-05-29 10:12 | PN- Cardiology ---
Subjective Subjective: Patient complains of upper chest discomfort only with inspiration. He does have mild shortness of breath. Review of Systems: Eyes no blurred or double vision Ears no deafness or ringing Nose and throat no recurrent sinusitis Lungs per history of present illness Heart per history of present illness Abdomen no nausea vomiting Musculoskeletal occasional muscle and joint pains Psych no anxiety or depression Neuro without recurrent headache or seizures Endocrine no heat or cold intolerance Objective Vital Signs and I&Os Vital Signs Date Time Temp Pulse Resp B/P B/P Pulse O2 O2 Flow FiO2 Mean Ox Delivery Rate 05/29 0752 96 118/80 05/29 0636 98.0 96 20 118/80 92 Room Air 05/29 0000 94 Nasal 2.0L Cannula 05/28 2321 102 116/78 05/28 2227 98.6 102 20 114/78 96 05/28 1737 98.2 101 22 118/70 96 05/28 1715 Nasal 1.0L Cannula 05/28 1653 98.1 87 20 109/67 100 Nasal 2.0L Cannula 05/28 1540 75 128/82 05/28 1520 82 18 110/72 98 Room Air 05/28 1430 98.6 81 20 128/80 100 Nasal 2.0L Cannula 05/28 1220 97.0 84 18 110/84 99 Nasal 2.0L Cannula 05/28 1007 76 18 116/82 99 Nasal 2.0L Cannula Intake & Output 05/29 1600 05/29 0800 05/29 0000 05/28 1600 05/28 0800 05/28 0000 Intake Total 800 925 Output Total Balance 800 925 Intake, IV 525 Intake, Oral 800 400 Patient 151 lb 145 lb Weight Weight Bed scale Measurement Method Physical Exam: Patient is a well-developed well-nourished male appearing in no acute distress HEENT is unremarkable Neck is supple there is no JVD Lungs few scattered rhonchi Heart irregular rhythm S1 and S2 are normal no murmurs gallops or rubs Abdomen bowel sounds positive Extremities without edema Current Medications: Current Medications Sig/Mars Start time Last Medication Dose Route Stop Time Status Admin Acetaminophen 650 MG Q4P PRN 05/29 0945 AC PO Aspirin 81 MG DAILY 05/29 0900 AC 05/29 PO 0752 Atorvastatin Calcium 80 MG 1700 05/28 1700 AC 05/28 PO 2321 Heparin Sodium 2,700 UNIT ONCE ONE 05/29 0900 DC (Porcine) IV 05/29 0901 Heparin Sodium 0 .STK-MED ONE 05/28 1456 DC (Porcine) .ROUTE Heparin Sodium 4,000 UNIT ONCE ONE 05/28 1300 CAN (Porcine) IV 05/28 1301 Heparin Sodium 25,000 UNIT Q24H 05/28 1300 AC 05/28 (Porcine) IV 1454 Sodium Chloride 500 ML Heparin Sodium 5,000 UNIT ONCE ONE 05/28 1300 DC 05/28 (Porcine) IV 05/28 1301 1450 Lorazepam 0 Q1P PRN 05/28 1300 AC IV Metoprolol Tartrate 0 .STK-MED ONE 05/28 1539 DC PO Metoprolol Tartrate 12.5 MG BID 05/28 1418 AC 05/29 PO 0752 Potassium Chloride 40 MEQ ONCE ONE 05/29 0730 DC 05/29 PO 05/29 0731 0752 Sodium Chloride 1,000 ML Q13H 05/28 1330 DC 05/28 IV 05/29 0229 1540 Sodium Chloride 1,000 ML BOLUS ONE 05/28 0945 DC 05/28 IV 05/28 1044 0928 Results Last 48 Hrs of Labs/Mics: Laboratory Tests 05/29/17 0425: Anion Gap 5, Estimated GFR > 60, BUN/Creatinine Ratio 22.0, Magnesium 2.0, APTT 57 H, CBC w Diff NO MAN DIFF REQ, RBC 4.03 L, MCV 99.2 H, MCH 33.7 H, MCHC 34.0, RDW 14.3, MPV 7.6, Gran % 66.2, Lymphocytes % 21.7, Monocytes % 10.0 H, Eosinophils % 1.8, Basophils % 0.3, Absolute Granulocytes 4.8, Absolute Lymphocytes 1.6, Absolute Monocytes 0.7 H, Absolute Eosinophils 0.1, Absolute Basophils 0 05/28/17 2115: Troponin I < 0.01, APTT 43 H 05/28/17 1935: Urine Opiates Screen < 100, Methadone Screen < 40, Barbiturate Screen < 60, Ur Phencyclidine Scrn < 6.00, Amphetamines Screen < 100, U Benzodiazepines Scrn < 85, Urine Cocaine Screen < 50, Urine Cannabis Screen < 5.00 05/28/17 1538: Troponin I < 0.01 05/28/17 1000: Anion Gap 6, Estimated GFR > 60, BUN/Creatinine Ratio 28.3 H, Glucose 102 H, Calcium 8.7, Magnesium 1.8, Total Bilirubin 1.3, AST 25, ALT 38, Alkaline Phosphatase 55, Troponin I < 0.01, Dbz-F-Vqysysswvgr Pept 1300 H, Total Protein 6.7, Albumin 3.9, Globulin 2.8, Albumin/Globulin Ratio 1.4, Lipase 33, TSH &T3 & Free T4 Intrp 0.923, PT 11.3, INR 1.04, APTT 28, D-Dimer High Sensitivty 302 H, CBC w Diff NO MAN DIFF REQ, RBC 4.49 L, MCV 98.9 H, MCH 33.7 H, MCHC 34.1, RDW 14.3, MPV 7.7, Gran % 82.0 H, Lymphocytes % 9.6 L, Monocytes % 7.7, Eosinophils % 0.5, Basophils % 0.2, Absolute Granulocytes 9.9 H, Absolute Lymphocytes 1.2, Absolute Monocytes 0.9 H, Absolute Eosinophils 0.1, Absolute Basophils 0, Serum Alcohol < 10.0 Telemetry personally reviewed atrial flutter with variable block Assessment/Plan Assessment/Plan 1. New onset symptomatic atrial flutter 2. 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 Active cigarette use 4. EtOH dependence 5. History of coronary artery calcifications 6. Atypical chest discomfort CTA negative for aortic dissection troponins are negative Recommendations 1. Would transition heparin to a NOAC 2. Echocardiogram is pending 3. Stressed importance of smoking cessation and refraining from alcohol 4. Plan is for outpatient CARY cardioversion versus flutter ablation 5. Continue to monitor on telemetry 6. The patient is in agreement with the above plan Continue telemetry? Yes
[2017-05-29 14:26] VITALS: BP 120/84
[2017-05-29 21:18] VITALS: BP 120/88
[2017-05-30 06:35] VITALS: BP 140/100
--- NOTE | 2017-05-30 07:30 | PN- Housestaff ---
See Addendum Subjective Follow-up For: Aflutter - COPD not on home oxygen - Upper chest discomfort Complaints: no complaints Tele-Events Since Last Visit: Afib 85-164 Subjective: Patient seen and examined at bedside. He states he is doing m,uch better today. Denies any chest pain, SOB, N/V/ diarrhea, fevers, palpitations, dizziness, lightheadedness. Of noet his HR incraeses to lorena 160's when he is ambulating. Review of Systems Constitutional: Denies: chills, fever, weakness. EENTM: Denies: visual changes. Cardiovascular: Denies: chest pain, orthopena, palpitations, peripheral edema. Respiratory: Reports: sputum production. Denies: cough, hemoptysis, short of breath, wheezing. Gastrointestinal: Denies: abdominal pain, constipation, diarrhea, nausea, vomiting. Genitourinary: Reports: no symptoms. Musculoskeletal: Reports: no symptoms. Neurological/Psychological: Denies: headache, numbness, tingling, tremors. Objective Last 24 Hrs of Vital Signs/I&O Vital Signs Date Time Temp Pulse Resp B/P B/P Pulse O2 O2 Flow FiO2 Mean Ox Delivery Rate 05/30 0635 97.9 100 20 140/100 97 Room Air 05/30 0000 94 Room Air 05/29 2118 104 120/88 05/29 2118 98.5 93 20 120/88 95 05/29 1918 95 Room Air Room Air 05/29 1426 98.1 113 18 120/84 94 Room Air 05/29 1110 Room Air Room Air 05/29 0752 96 118/80 Intake & Output 05/30 0800 05/30 0000 05/29 1600 Intake Total 600 650 600 Output Total Balance 600 650 600 Intake, Oral 600 650 600 Physical Exam General Appearance: Alert, Oriented X3, Cooperative, No Acute Distress HEENT: Atraumatic, PERRLA, EOMI, Mucous Membr. moist/pink Neck: Supple, No JVD, No thryomegaly, No LAD Cardiovascular: Normal S1, Normal S2, irregularly irregular Lungs: Clear to Auscultation, Normal Air Movement Abdomen: Normal Bowel Sounds, Soft, No Tenderness Neurological: Normal Gait, Normal Speech, Strength at 5/5 X4 Ext, Normal Tone, Sensation Intact, Cranial Nerves 3-12 NL, Reflexes 2+ Extremities: No Edema, Normal Pulses Current Medications: Current Medications Sig/Mars Start time Last Medication Dose Route Stop Time Status Admin Acetaminophen 650 MG Q4P PRN 05/29 0945 AC PO Albuterol Sulfate 3 ML BID 05/29 1117 AC 05/29 INH 1915 Aspirin 81 MG DAILY 05/29 0900 AC 05/29 PO 0752 Atorvastatin Calcium 80 MG 1700 05/28 1700 AC 05/29 PO 1555 Heparin Sodium 2,700 UNIT ONCE ONE 05/29 0900 DC 05/29 (Porcine) IV 05/29 0901 1030 Heparin Sodium 5,000 UNIT .STK-MED ONE 05/29 0745 DC (Porcine) IV 05/29 0746 Heparin Sodium 25,000 UNIT Q24H 05/28 1300 DC 05/29 (Porcine) IV 05/29 1600 1219 Sodium Chloride 500 ML Ipratropium Howard 2.5 ML BID 05/29 1117 AC 05/29 INH 1915 Lorazepam 0 Q1P PRN 05/28 1300 AC IV Metoprolol Tartrate 12.5 MG BID 05/28 1418 AC 05/29 PO 2118 Patient Medication 1 ED ONE ONE 05/29 1645 DC 05/29 Teaching ED 05/29 1646 1651 Potassium Chloride 40 MEQ ONCE ONE 05/29 0730 DC 05/29 PO 05/29 0731 0752 Rivaroxaban 20 MG 1700 05/29 1700 AC 05/29 PO 1555 Last 24 Hrs of Lab/Chris Results Last 24 Hrs of Labs/Mics: Laboratory Tests 05/30/17 0612: Sodium Pending, Potassium Pending, Chloride Pending, Carbon Dioxide Pending, Anion Gap Pending, BUN Pending, Creatinine Pending, BUN/Creatinine Ratio Pending , Magnesium Pending 05/29/17 1400: APTT Cancelled Orders ECHO Findings: FINDINGS Left Ventricle Left ventricular cavity size normal. Left ventricular wall thickness mildly increased. No obvious regional wall motion abnormalities. Borderline normal left ventricular ejection fraction estimated at 50 Right Ventricle Normal right ventricular size and function. Right Atrium Mild right atrial dilatation. Left Atrium Mild left atrial dilatation. Mitral Valve Structurally normal mitral valve. Mild mitral regurgitation. Aortic Valve No aortic stenosis. Trileaflet aortic valve. Trace aortic regurgitation. Tricuspid Valve Structurally normal tricuspid valve. Mild tricuspid regurgitation. No obvious pulmonary hypertension. Pulmonic Valve Pulmonic valve not well visualized, grossly normal. Pericardium No pericardial effusion. Great Vessels Normal size aortic root. CONCLUSIONS Left ventricular cavity size normal. Left ventricular wall thickness mildly increased. No obvious regional wall motion abnormalities. Borderline normal left ventricular ejection fraction estimated at 50 %. Mild right atrial dilatation. Mild left atrial dilatation. No obvious pulmonary hypertension. No pericardial effusion. Que Camejo M.D. (Electronically Signed) Final Date: 30 May 2017 09:09 Assessment/Plan Assessment: 66-year-old male with a past medical history of alcohol, HLP, COPD (not on home O2) was brought in by ambulance for evaluation of chest pain and palpitations. Vitals at the time of blood pressure 116/82, respiratory rate of 18, saturating 99% on 2 L of oxygen via nasal cannula. Labs pertinent for leukocytosis with a white blood count of 12,100, H&H of 15.1/ 44.4 and a platelet count of 255508. Serum chemistries reveal a sodium 136, potassium 3.9, bicarb of 29, anion gap 12 6, BUN 17 and creatinine of 0.6. Serum glucose 102. Magnesium was 1.8. LFTs unremarkable with a total bili of 1.3, AST/ALT of 325/38, alk phos of 55 first of troponin negative at less than 0.01 BNP 1300. TSH/T3-T4 0.92 and serum lipase of 30. INR 1.04 with a d-dimer of 302. Tox screen revealed serum alcohol of less than 10. Chest x-ray was done which revealed an unremarkable examination. The previously noted small nodules noted on CT are not conspicuous on x-ray. CTA chest and abdomen pelvis r/o aortic dissection. EKG revealed atrial flutter with HR: 154; 2:1 blcok; LVH; tall T waves The ER patient received 6 mg IV 1 of adenosine, 5 mg IV 1 of Lopressor normal saline bolus. Assessment and Plan Patient placed on Telelmetry and following problems are being addressed: # Atrial flutter - Most likely 2/2 COPD, in the setting of having consumed alcohol - New onset- of unknown duration - Increase Metoprolol to 25mg BID PO as he still is tachycardioc in the 160's on ambulation - He was switched to Xarelto yesterday after speaking with Dr. Crews - ACS was r/o with trop and EKG q6 hrs - Echo to r/o RWMA, and ? pericarditis showed borderline normal left ventricular ejection fraction estimated at 50 %. Mild right atrial dilatation. Mild left atrial dilatation, and did not show evidence of pericardial fluid - F/U cardio recs. #Alcohol dependence - Continue on CIWA for now, with plans to D/C tmrw - Of note CIWA have been 0 - Continue on Ativan per CIWA. #HLP - Continue on Atorvastatin 80mg and ASA 81mg daily. #Nicotine dependence - Counselled on smoking cessation - DVT Prophylaxis - On IV heparin - Diet - Heart Healthy - Code Status - Full Code Problem List: 1. Atrial flutter Pain Ratin Pain Location: n/a Pain Goal: Remain pain free Pain Plan: tylenol Tomorrow's Labs & Rationales: BEP - Mag, K
[2017-05-30 08:33] VITALS: BP 140/96
--- NOTE | 2017-05-30 09:10 | ECHOCARDIOGRAM REPORT ---
GABE DE JESUS Age: 66 : 1950 Gender: M Exam Date: 05/29/2017 10:22 Exam Location: [place] Ht (in): 72 Wt (lb): 150 BSA: 1.85 BP: 118 / 80 Ordering Physician: Roberta Stuart MD Referring Physician: Que Camejo M.D. Technologist: Tonie Roblero Room Number: [id number] Indications: AFIB/FLUTTER Rhythm: Technical Quality: FINDINGS Left Ventricle Left ventricular cavity size normal. Left ventricular wall thickness mildly increased. No obvious regional wall motion abnormalities. Borderline normal left ventricular ejection fraction estimated at 50 Right Ventricle Normal right ventricular size and function. Right Atrium Mild right atrial dilatation. Left Atrium Mild left atrial dilatation. Mitral Valve Structurally normal mitral valve. Mild mitral regurgitation. Aortic Valve No aortic stenosis. Trileaflet aortic valve. Trace aortic regurgitation. Tricuspid Valve Structurally normal tricuspid valve. Mild tricuspid regurgitation. No obvious pulmonary hypertension. Pulmonic Valve Pulmonic valve not well visualized, grossly normal. Pericardium No pericardial effusion. Great Vessels Normal size aortic root. CONCLUSIONS Left ventricular cavity size normal. Left ventricular wall thickness mildly increased. No obvious regional wall motion abnormalities. Borderline normal left ventricular ejection fraction estimated at 50 %. Mild right atrial dilatation. Mild left atrial dilatation. No obvious pulmonary hypertension. No pericardial effusion. Que Camejo M.D. (Electronically Signed) Final Date: 30 May 2017 09:09 MEASUREMENTS (Male / Female) Normal Values 2D ECHO LV Diastolic Diameter PLAX 4.0 cm 4.2 - 5.9 / 3.9 - 5.3 cm LV Systolic Diameter PLAX 2.9 cm 2.1 - 4.0 cm LV Fractional Shortening PLAX 27.5 % 25 - 46 % LV Ejection Fraction 2D Teich 54.0 % IVS Diastolic Thickness 1.2 cm LVPW Diastolic Thickness 1.2 cm LV Relative Wall Thickness 0.6 RV Internal Dim ED PLAX 3.0 cm 1.9 - 3.8 cm LVOT Diameter 2.1 cm LA Systolic Diameter LX 4.8 cm 3.0 - 4.0 / 2.7 - 3.8 cm LA Volume 63.0 cm 18 - 58 / 22 - 52 cm Ascending Aorta Diameter 3.7 cm DOPPLER AV Peak Velocity 99.9 cm/s AV Peak Gradient 4.0 mmHg AV Mean Velocity 61.4 cm/s AV Mean Gradient 2.0 mmHg AV Velocity Time Integral 15.8 cm LVOT Peak Velocity 57.6 cm/s LVOT Peak Gradient 1.3 mmHg LVOT Mean Velocity 43.5 cm/s LVOT Mean Gradient 1.0 mmHg LVOT Velocity Time Integral 9.6 cm LVOT Stroke Volume 33.3 cm AV Area Cont Eq vti 2.1 cm AV Area Cont Eq pk 2.0 cm Mitral E Point Velocity 59.2 cm/s Mitral A Point Velocity 26.7 cm/s Mitral E to A Ratio 2.2 MV Deceleration Time 246.0 ms TR Peak Velocity 242.0 cm/s TR Peak Gradient 23.4 mmHg Right Atrial Pressure 10.0 mmHg Pulmonary Artery Systolic Pressu 33.4 mmHg Right Ventricular Systolic Press 33.4 mmHg PV Peak Velocity 42.9 cm/s PV Peak Gradient 0.7 mmHg PV Mean Velocity 32.0 cm/s PV Mean Gradient 0.0 mmHg PV Velocity Time Integral 6.8 cm LV E' Lateral Velocity 10.9 cm/s Mitral E to LV E' Lateral Ratio 5.4 LV E' Septal Velocity 7.6 cm/s Mitral E to LV E' Septal Ratio 7.8
[2017-05-30] MEDS ORDERED: IPRATROPIU0.2 MG/1 M INH ×2 (10:29→10:44)
[2017-05-30] MEDS ORDERED: METOPROLOL TART25 M1 PO ×2 (10:29→10:44)
[2017-05-30] MEDS ORDERED: XARELTO10 M1 PO ×2 (10:29→10:44)
--- NOTE | 2017-05-30 10:39 | Patient Discharge Instructions ---
Discharge Instructions General Discharge Information You were seen/treated for: - Aflutter Special Instructions: Please follow up with your primay care phsyician in one week. Please follow up with your packing machine feeder in one week. Diet Recommended Diet: Regular Activity Activity Self Limited: Yes Acute Coronary Syndrome Inclusion Criteria At DC or during hospital stay patient has or had the following: ACS DIAGNOSIS No Discharge Core Measures Meds if any: Prescribed or Continued at Discharge Meds if any: NOT Prescribed or Continued at Discharge Congestive Heart Failure Inclusion Criteria At DC or during hospital stay patient has or had the following: CHF DIAGNOSIS No Discharge Core Measures Meds if any: Prescribed or Continued at Discharge Meds if any: NOT Prescribed or Continued at Discharge Cerebrovascular accident Inclusion Criteria At DC or during hospital stay patient has or had the following: CVA/TIA Diagnosis No Discharge Core Measures Meds if any: Prescribed or Continued at Discharge Meds if any: NOT Prescribed or Continued at Discharge Venous thromboembolism Inclusion Criteria VTE Diagnosis No VTE Type NONE VTE Confirmed by (Test) NONE Discharge Core Measures - Per Current guidelines, there needs to be overlap - treatment for the first 5 days of Warfarin therapy. - If discharged on Warfarin prior to 5 days of - overlap therapy, the patient will need to be - assessed for post discharge needs including - *Post discharge parental anticoagulation - *Warfarin and/or parental anticoagulation education - *Follow up date to check INR post discharge At least 5 days overlap therapy as Inpatient No Meds if any: Prescribed or Continued at Discharge Note: Overlap Therapy is Warfarin and Anticoagulant Meds if any: NOT Prescribed or Continued at Discharge
--- NOTE | 2017-05-30 10:45 | Discharge Summary ---
Visit Information Visit Dates Admission Date: 05/28/17 Discharge Date: 05/30/2017 Hospital Course Course Attending Physician: Jolene Obrien MD Primary Care Physician: Ryan Ontiveros MD Consulting Request: Consulting Specialty: Cardiology Hospital Course: 66-year-old male with a past medical history of alcohol, HLP, COPD (not on home O2) was brought in by ambulance for evaluation of chest pain and palpitations. Vitals at the time of blood pressure 116/82, respiratory rate of 18, saturating 99% on 2 L of oxygen via nasal cannula. Labs pertinent for leukocytosis with a white blood count of 12,100, H&H of 15.1/ 44.4 and a platelet count of [id number]. Serum chemistries reveal a sodium 136, potassium 3.9, bicarb of 29, anion gap 12 6, BUN 17 and creatinine of 0.6. Serum glucose 102. Magnesium was 1.8. LFTs unremarkable with a total bili of 1.3, AST/ALT of 325/38, alk phos of 55 first of troponin negative at less than 0.01 BNP 1300. TSH/T3-T4 0.92 and serum lipase of 30. INR 1.04 with a d-dimer of 302. Tox screen revealed serum alcohol of less than 10. Chest x-ray was done which revealed an unremarkable examination. The previously noted small nodules noted on CT are not conspicuous on x-ray. CTA chest and abdomen pelvis r/o aortic dissection. EKG revealed atrial flutter with HR: 154; 2:1 blcok; LVH; tall T waves The ER patient received 6 mg IV 1 of adenosine, 5 mg IV 1 of Lopressor normal saline bolus. Patient placed on Telelmetry and following problems were addressed: # Atrial flutter - Most likely 2/2 COPD, in the setting of having consumed alcohol. ACS was r/o with trop and EKG q6 hrs. Patient was in new onset atrial flutter of unknown duration. He was started on AC with IV heparin given his [id number] was 1 (but with plans for cardioversion or ablation in future) and switched to Xarelto 20mg PO daily. He was started on Metoprolol 12.5mg BID which was icnreased to 25mg BID PO as his HR would ocassionally in the 150-160's but patient was asymptommatic. An echo was also done to r/o RWMA, and ? pericarditis. Echo showed borderline normal left ventricular ejection fraction estimated at 50 %. Mild right atrial dilatation. Mild left atrial dilatation, and did not show evidence of pericardial fluid. He is to follow upw ith Dr. Marshall in the office in a week. #Alcohol dependence - He was placed on CIWA monitoring, and he did not withdraw. He was counselled on alcohol cessation. #HLP -He was continue on Atorvastatin 80mg and ASA 81mg daily. ASA was D/C on discharge given patient was on AC. #Nicotine dependence - Patient was counselled on smoking cessation #COPD Patient's O2 requirments weer WNL, however he was experiencing some mild shortness of breath which resolved with Duo/Nebs. He was discahrged on combivent inhaler. - DVT Prophylaxis - He was on IV heparin and then switche dto Xarelto - Diet - Patient was on heart healthy diet Allergies: Coded Allergies: oxycodone (From PERCOCET) (Intermediate, URTICARIA 05/28/17) Significant Procedures: SERVICE DATE: 05/28/17 EXAM TYPE: RAD - XRY-PORTABLE CHEST XRAY FINDINGS: No significant abnormality is noted involving the heart, lungs, mediastinum, bony thorax or soft tissues. IMPRESSION: Unremarkable examination. The previously noted small nodules noted on CT are not conspicuous on x-ray. SERVICE DATE: 05/28/17 EXAM TYPE: CAT - CT ABD & PELVIS ANGIOGRAM; CTA CHEST-AORTIC DISSECTION FINDINGS: VASCULAR: ASCENDING AORTA: Top normal in size measuring 3.8 x 3.7 cm at the main pulmonary artery. There is no evidence of intramural hematoma or dissection. LAD coronary artery calcium. AORTIC ARCH: Normal caliber. Three-vessel aortic arch.. Vessels are patent. No evidence of intramural hematoma or dissection. DESCENDING AORTA: Normal caliber. No evidence of intramural hematoma or dissection. ABDOMINAL AORTA: Normal caliber. Mild plaque in the infrarenal segment. No evidence of intramural hematoma or dissection. CELIOMESENTERIC ARTERIES: Mild disease at the celiac artery origin. The SMA is widely patent. The BILLIE is widely patent. RENAL ARTERIES: Mild disease at the right renal artery origin. Mild disease at the left renal artery origin. The renal arteries are patent. RIGHT ILIOFEMORAL ARTERIES: Moderate atherosclerotic plaque. Severe stenosis at the external iliac artery origin. Mild common femoral level disease. LEFT ILIOFEMORAL ARTERIES: Moderate atherosclerotic plaque. No hemodynamically significant stenosis. Mild common femoral level disease. NONVASCULAR: LUNGS: Severe emphysema. There are numerous solid nodules bilaterally ranging in size from 2-9 mm without change. No definite new lesion. Follow-up as appropriate based on the prior lung cancer screening recommendations. MEDIASTINUM: No mediastinal adenopathy. PLEURA: There is no pleural effusion. No pleural mass or thickening. LIVER, GALLBLADDER, AND BILIARY TREE: The liver is normal in size, shape, and attenuation. No focal hepatic lesion or biliary ductal dilatation is present. The gallbladder is unremarkable with no evidence of radiopaque gallstones, gallbladder wall thickening, or obvious pericholecystic inflammatory changes. PANCREAS: Unremarkable. SPLEEN: Unremarkable. ADRENAL GLANDS: Unremarkable. KIDNEYS AND URETERS: The kidneys are normal in size, shape, and attenuation. No hydronephrosis, hydroureter, or calculi seen. No perinephric stranding. BLADDER: Unremarkable. GASTROINTESTINAL TRACT: The small and large bowel are unremarkable. The appendix is unremarkable. ABDOMINAL WALL: No significant hernia is appreciated. LYMPH NODES: Normal. PELVIC VISCERA: The prostate and seminal vesicles are unremarkable. OSSEOUS STRUCTURES: Mild multilevel degenerative disc disease. No compression fracture. IMPRESSION: Negative for aortic dissection. SERVICE DATE: 05/28/17 EXAM TYPE: CARD - ECHOCARDIOGRAM FINDINGS Left Ventricle Left ventricular cavity size normal. Left ventricular wall thickness mildly increased. No obvious regional wall motion abnormalities. Borderline normal left ventricular ejection fraction estimated at 50 Right Ventricle Normal right ventricular size and function. Right Atrium Mild right atrial dilatation. Left Atrium Mild left atrial dilatation. Mitral Valve Structurally normal mitral valve. Mild mitral regurgitation. Aortic Valve No aortic stenosis. Trileaflet aortic valve. Trace aortic regurgitation. Tricuspid Valve Structurally normal tricuspid valve. Mild tricuspid regurgitation. No obvious pulmonary hypertension. Pulmonic Valve Pulmonic valve not well visualized, grossly normal. Pericardium No pericardial effusion. Great Vessels Normal size aortic root. CONCLUSIONS Left ventricular cavity size normal. Left ventricular wall thickness mildly increased. No obvious regional wall motion abnormalities. Borderline normal left ventricular ejection fraction estimated at 50 %. Mild right atrial dilatation. Mild left atrial dilatation. No obvious pulmonary hypertension. No pericardial effusion. Que Camejo M.D. (Electronically Signed) Final Date: 30 May 2017 09:09 MEASUREMENTS (Male / Female) Normal Values 2D ECHO LV Diastolic Diameter PLAX 4.0 cm 4.2 - 5.9 / 3.9 - 5.3 cm LV Systolic Diameter PLAX 2.9 cm 2.1 - 4.0 cm LV Fractional Shortening PLAX 27.5 % 25 - 46 % LV Ejection Fraction 2D Teich 54.0 % IVS Diastolic Thickness 1.2 cm LVPW Diastolic Thickness 1.2 cm LV Relative Wall Thickness 0.6 RV Internal Dim ED PLAX 3.0 cm 1.9 - 3.8 cm LVOT Diameter 2.1 cm LA Systolic Diameter LX 4.8 cm 3.0 - 4.0 / 2.7 - 3.8 cm LA Volume 63.0 cm 18 - 58 / 22 - 52 cm Ascending Aorta Diameter 3.7 cm DOPPLER AV Peak Velocity 99.9 cm/s AV Peak Gradient 4.0 mmHg AV Mean Velocity 61.4 cm/s AV Mean Gradient 2.0 mmHg AV Velocity Time Integral 15.8 cm LVOT Peak Velocity 57.6 cm/s LVOT Peak Gradient 1.3 mmHg LVOT Mean Velocity 43.5 cm/s LVOT Mean Gradient 1.0 mmHg LVOT Velocity Time Integral 9.6 cm LVOT Stroke Volume 33.3 cm AV Area Cont Eq vti 2.1 cm AV Area Cont Eq pk 2.0 cm Mitral E Point Velocity 59.2 cm/s Mitral A Point Velocity 26.7 cm/s Mitral E to A Ratio 2.2 MV Deceleration Time 246.0 ms TR Peak Velocity 242.0 cm/s TR Peak Gradient 23.4 mmHg Right Atrial Pressure 10.0 mmHg Pulmonary Artery Systolic Pressu 33.4 mmHg Right Ventricular Systolic Press 33.4 mmHg PV Peak Velocity 42.9 cm/s PV Peak Gradient 0.7 mmHg PV Mean Velocity 32.0 cm/s PV Mean Gradient 0.0 mmHg PV Velocity Time Integral 6.8 cm LV E' Lateral Velocity 10.9 cm/s Mitral E to LV E' Lateral Ratio 5.4 LV E' Septal Velocity 7.6 cm/s Mitral E to LV E' Septal Ratio 7.8 Disposition Summary Disposition Principal Diagnosis: New onset atrial flutter Additional Diagnosis: COPD not on home O2 HLP Discharge Disposition: home or self care Discharge Instructions General Discharge Information Code Status: Full Code Patient's Diet: Heart healthy Patient's Activity: As tolerated Follow-Up Instructions/Appts: Please follow up with your primay care phsyician in one week. Please follow up with your ladle patcher in one week. Medications at Discharge Discharge Medications: Stop taking the following medications: Aspirin (Aspirin*) 81 MG TAB.CHEW ORAL DAILY Continue taking these medications: Rosuvastatin Calcium (Crestor) 20 MG TABLET 1 Tablet ORAL DAILY Qty = 60 Comments: Last Taken: 05/29/16 Time: 5 PM Start taking the following new medications: Rivaroxaban (Xarelto) 10 MG TABLET 20 Milligram ORAL 5 PM Qty = 90 No Refills Instructions: . Comments: Last Taken: 05/29/17 Time: 5 PM Metoprolol Tartrate (Metoprolol Tartrate) 25 MG TABLET 25 Milligram ORAL TWICE DAILY Qty = 120 No Refills Instructions: . Comments: Last Taken: 05/30/17 Time: 8:30 AM Ipratropium/Albuterol Sulfate (Combivent Respimat Inhal [place]) 20 MCG-100 MCG/ ACTUATION MIST.INHAL 1 PUFF Inhale through mouth TWICE DAILY Qty = 1 No Refills Comments: DID NOT RECIEVE WHILE IN HOSPITAL RECIEVED NEBULIZER IN HOSPITAL Copies To: Rolando FOX,Hao; Weston FOX,Ryan Goodson Attending MD Review Statement Documenting Attending: Jolene Obrien MD Other Findings: No new complaints. Overnight atrial flutter. Cardiology follow up recommned increase metoprolol. Patient with no chest pain. Anticipate dc with close follow up with cardiology for cardioversion as outpatient. Case discussed with cardiology Dr aButista.
[2017-05-30] MEDS ORDERED: COMBIVENT RESPIM4 GM INH (11:59)
== END 2017-05-30 12:35 | DRG 310 ==
LOC: ERH 09:22 → ERHI 11:01 → 1NO 11:01 → ENRESERV 16:03 → ENTRNSPT 16:56 → EDTRNSPT 17:09 → EDTRNSPTSTS 17:09 → 1NO 17:25 → CMPTRNSPT 17:34 → ENPENDDIS 05-30 10:45 → 1NO 05-30 12:35
PROVIDERS: Internal Medicine; Internal Medicine Infectious Disease; Physician Assistant Medical
DX: I48.92 Unspecified atrial flutter (principal); E78.5 Hyperlipidemia, unspecified; J44.9 Chronic obstructive pulmonary disease, unspecified; Z88.5 Allergy status to narcotic agent; Z79.82 Long term (current) use of aspirin; F10.20 Alcohol dependence, uncomplicated; F17.210 Nicotine dependence, cigarettes, uncomplicated
CPT/HCPCS: 1NSP; 36592; 71045; 74174; 80307; 82436; 93005; 93010; 93306; 96374; 96375; G0480; J0153; J1644; J3490